=== PATIENT | male | born 1965 | race Caucasian/White ===

== ENCOUNTER 2025-05-15 16:36 | Inpatient (IN) | payer OTHER ==
[~2025-05-15] VITALS: Ht 182.9 cm; Wt 93.2 kg
--- NOTE | 2025-05-15 16:44 | ELECTROCARDIOGRAPH REPORT ---
[facility] Test Date: 2025-05-15 Test Time: 16:39:24 Pat Name: BENJA GUY Department: EMERGENCY ROOM Room: Gender: M Carpenter'S Helper: ANTON : 1965 Requested By: ARSH WALLACE Order Number: [id number] Reading MD: Dr. Jorge Barone Measurements Intervals [place] Rate: 111 P: 48 SC: 185 QRS: -38 QRSD: 103 T: 76 QT: 349 QTc: 474 Interpretive Statements Sinus tachycardia Probable left atrial enlargement Inferior infarct, old Electronically Signed On 05-15-2025 18:13:[address] Jorge Barone Please click the below link to view image of tracing.
[2025-05-15 16:56] LABS: MEAN PLATELET VOLUME 9.7 FL (7.4-10.4); RED CELL DISTRIBUTION WIDTH 16.8 % (11.5-14.5)
--- NOTE | 2025-05-15 17:03 | RADIOLOGY REPORT ---
CHEST RADIOGRAPH Indication: CP Technique: Single frontal view of the chest was obtained COMPARISON: None FINDINGS: Lines and Tubes: None Lungs: Pulmonary vasculature is mildly prominent. No focal consolidative opacity. Pleura: The right costophrenic sulcus is not entirely visualized. Suggestion of pleural thickening al armando the right lateral pleural margin. No pneumothorax. Cardiomediastinal contours: Cardiac silhouette is enlarged. Bones: Scattered osseous degenerative changes. IMPRESSION: Cardiomegaly with mild pulmonary vascular congestion. No focal consolidation. Possible small right pleural effusion.
[2025-05-15 17:18] LABS: CREATININE 1.73 MG/DL (0.60-1.10); PRO BRAIN NATRIURETIC PEPTIDE 13886 PG/ML (0-125); TOTAL CARBON DIOXIDE 22.5 MMOL/L (24-32); eCRCL 52 ML/MIN; eGFR 41 ML/MIN
[2025-05-15] MEDS: normal saline 1000ml 1,000 ML IV ONE (19:20)
--- NOTE | 2025-05-15 19:24 | Physician Documentation ---
History of Present Illness ~ Chief Complaint: Weakness Stated Complaint: SOB Time Seen by MD: 18:28 OK to notify your PCP?: Yes Source: patient, RN/MD, RN notes reviewed, old records Mode of Arrival: POV, Dropped Off Exam Limitations: no limitations HPI BED 15 This patient is a 59 y/o male who presents to ED with chief complaint of weakness. Patient states this has been going on for the past few weeks, and thinks he may be developing a pneumonia as he is also having shortness of breath and productive cough. He also endorses intermittent fever/chills. When asked, he mentions he has also noticed some new swelling in his feet. Patient denies any chest pain. Patient notes he has not seen a primary care doctor in 10 years. He does not take any medications for anything. States he quit smoking cigarettes a few months ago, but tried methamphetamine once 3 days ago, but has not done it again. Patient denies any other associated symptoms at this time. Patient denies any other alleviating or exacerbating factors. Medication Reconciliation Allergies: Coded Allergies: No Known Allergies (Unverified , 05/15/25) Scheduled Apixaban (Eliquis), 5 MG PO BID Atorvastatin Calcium (Atorvastatin Calcium), 40 MG PO DAILY Empagliflozin (Jardiance), 10 MG PO DAILY Lisinopril (Lisinopril), 10 MG PO DAILY Metoprolol Succinate (Metoprolol Succinate), 25 MG PO DAILY Miscellaneous Medications Home Med List (No Home Medications), (Reported) Past Medical History Past Medical History: Bronchitis Past Surgical History: tonsillectomy Smoking Status: Former smoker Alcohol Use: None Drug Use: methamphetamine Review of Systems All Other Systems at this time: Reviewed and Negative Constitutional: Reports: fever Respiratory: Reports: cough, shortness of breath Physical Exam Vital Signs: RN Vital Signs have been reviewed: Yes, Temperature: 98.4, Source: Temporal, Heart Rate: 107, Respiratory Rate: 17, BP: 155/126, Pulse Oximetry: 99, Weight: 93.180 Oxygen Flow Rate: 0 Physical Exam General: Ill appearing. No acute distress. Skin: [place], warm and dry with no rashes. HEENT: Head was normocephalic and atraumatic. Eyes - pupils equal, round, reactive to light and accommodation. Extraocular movements were intact. Conjunctivae were nonicteric. Ears - bilateral tympanic membranes were normal. The mouth and oropharynx were clear with moist mucous membranes. There were no pharyngeal exudates or erythema. Neck: Supple and nontender. There was no jugular venous distention, lymphadenopathy, thyromegaly or masses. Chest: Short shallow breath sounds. Otherwise lungs were clear to auscultation bilaterally without wheezes, rales or rhonchi. No accessory muscle use. No dullness to percussion. Heart: Rapid heart rate, regular rhythm. S1, S2. No murmurs. Palpation of the chest wall was normal. No rubs or thrills. Abdomen: Soft, nontender and nondistended. Positive bowel sounds. No guarding or rebound. No hepatosplenomegaly or palpable masses. Extremities: Trace edema to bilateral lower extremities. No cyanosis or clubbing. The patient moves all extremities. Pulses were equal and symmetric. Neurologic: Cranial nerves II-XII were intact. Sensation was intact to light touch throughout. Motor strength was 5/5 in all four extremities. Deep tendon reflexes were intact in both upper and lower extremities. Psychologic: The patient was oriented to person, place and time. The patient demonstrated appropriate judgement and insight. Progress Progress Note 192: Paged hospitalist 1940: Discussed case with hospitalist who agrees to evaluate patient for admission. Results/Orders Reviewed/noted all lab results: Yes Results/Orders Orders - JORGE BARONE MD Saline Lock (05/15/25 19:19) Page Hospitalist (05/15/25 19:29) Fill Out Med Reconciliation (05/15/25 19:29) Echocardiogram (05/16/25 00:03) Completed Orders - JORGE BARONE MD D-Dimer (05/15/25 19:19) Pt Inr (05/15/25 19:19) PTT (05/15/25 19:19) Aspirin 81mg Chew Tablet (Aspirin 81mg C (05/15/25 19:20) Normal Saline 1000ml (Sodium Chloride 10 (05/15/25 19:20) Drug Screen, Urine (05/15/25 19:19) Nitroglycerin 0.4mg/Hr Patch (Nitro-Dur (05/15/25 19:30) Heparin 25,000 Unit/250ml Bag (Heparin 2 (05/15/25 19:30) Carvedilol Tablet (Coreg Tablet) (05/15/25 19:30) Echocardiogram (05/16/25 00:03) Laboratory Tests Test 05/15/25 16:45 White Blood Count 10.0 Red Blood Count 5.49 Hemoglobin 16.7 Hematocrit 49.9 Mean Corpuscular Volume 90.8 Mean Corpuscular Hemoglobin 30.4 Mean Corpuscular Hemoglobin Concent 33.4 Red Cell Distribution Width 16.8 H Platelet Count 204 Mean Platelet Volume 9.7 Neutrophils (%) (Auto) 81.2 H Lymphocytes (%) (Auto) 9.4 L Monocytes (%) (Auto) 8.9 Eosinophils (%) (Auto) 0.1 Basophils (%) (Auto) 0.4 Neutrophils # (Auto) 8.1 H Lymphocytes # (Auto) 0.9 L Monocytes # (Auto) 0.9 Eosinophils # (Auto) 0.0 Basophils # (Auto) 0.0 CBC Comment Prothrombin Time 13.2 H INR International Normalized Ratio 1.3 Activated Partial Thromboplast Time 27 D-Dimer 9.15 H D-Dimer Comment Coagulation Comments Sodium Level 138 Potassium Level 4.1 Chloride Level 103 Carbon Dioxide Level 22.5 L Anion Gap 13 Blood Urea Nitrogen 30 H Creatinine 1.73 H Estimated GFR/1.73 m2 41 BUN/Creatinine Ratio 17.3 Glucose Level 136 H Hemoglobin A1c 5.9 Calcium Level 9.2 Magnesium Level 2.1 Total Bilirubin 2.3 H Direct Bilirubin 1.0 H Aspartate Amino Transf (AST/SGOT) 71 H Alanine Aminotransferase (ALT/SGPT) 468 H Alkaline Phosphatase 135 H Troponin I High Sensitivity 256 *H Pro-B-Type Natriuretic Peptide 25072 H Total Protein 7.1 Albumin 3.6 Globulin 3.5 Albumin/Globulin Ratio 1.0 L Chemistry Comments Ethyl Alcohol Level < 10 Re-Evaluation Re-Evaluation : Re-Evaluation: Improved Progress Patient was seen and examined. Patient was given reassurance. Patient was having complaints of chest pain. Patient was admitted for those complaints. Laboratory work was obtained. Tox screen was positive for methamphetamine. CBC shows no signs of anemia or elevated white count. Most signs of infection. Coagulation was obtained chemistry however had multiple abnormalities including troponin at 2:50 a.m. 6-102 38. [place] [address]. Also CO2 slightly low at 22.5 suggesting of metabolic acidosis. BUN is 30 creatinine is 1.73 also showing signs of dehydration and renal insufficiency. Bilirubin slightly elevated at 2.3 as well as AST 71 ALT of 468 consistent with some transaminitis. Patient was placed on a continuous monitor. Patient did receive aspirin as well as some fluids. Later echocardiogram was ordered by myself and to control the blood pressure patient received nitroglycerin and Coreg which would both help heart failure tachycardia and blood pressure. He was started on a heparin drip. Continuous environmental monitoring specialist shows sinus tachycardia heart rate 100s, abnormal, my interpretation. Pulse oximetry monitor interpretation shows normal oxygenation satting at 99% room air, normal, my interpretation. 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 Jorge Barone Measurements Intervals [place] Rate: 111 P: 48 HI: 185 QRS: -38 QRSD: 103 T: 76 QT: 349 QTc: 474 Interpretive Statements Sinus tachycardia Probable left atrial enlargement Inferior infarct, old Electronically Signed On 05-15-2025 18:13:[address] Jorge Barone Please click the below link to view image of tracing. EKG Date and Time:05/15/25 1639 Electronically Signed by: JORGE BARONE MD Date and Time: 05/15/25 181 NO PRIMARY CARE PROVIDER~ cc: ~ Chest X-Ray : Interpreted By: both Additional Comments [facility] [address], [place], [place] - [address] DIAGNOSTIC RADIOLOGY Patient: BENJA GUY Medical Record: [id number] [facility] : 1965, Age: 59 Sex: Male Location: ER Patient Status: [facility] ER Service Date/Time: 05/15/251648 Ordering Physician: ARSH WALLACE DO Exam: CHEST,SINGLE VIEW CHEST RADIOGRAPH Indication: CP Technique: Single frontal view of the chest was obtained COMPARISON: None FINDINGS: Lines and Tubes: None Lungs: Pulmonary vasculature is mildly prominent. No focal consolidative opacity. Pleura: The right costophrenic sulcus is not entirely visualized. Suggestion of pleural thickening along the right lateral pleural margin. No pneumothorax. Cardiomediastinal contours: Cardiac silhouette is enlarged. Bones: Scattered osseous degenerative changes. IMPRESSION: Cardiomegaly with mild pulmonary vascular congestion. No focal consolidation. Possible small right pleural effusion. Electronically Signed by:CONCETTA OCONNOR MD Date & Time: 05/15/251700 Dictated by: CONCETTA OCONNOR MD Dictation date and time: 05/15/251646 Primary Care Provider: NO PRIMARY CARE PROVIDER cc: ARSH WALLACE DO ~ EDMD BARONE REVIEWED IMAGING AND AGREES WITH ABOVE FINDINGS Heart Score: Heart Score Response (Comments) Value History Moderate Suspicious 1 EKG Repolarization Disturb 1 Age 45-64 1 Risk Factors 1 or 2 risk factors 1 Troponin >3 x's Normal limit 2 Total 6 Medical Decision Making Additional info obtained from: old records Differential Dx:Considerations: Include: dehydration, dysrhythmia, electrolyte imbalance, encephalopathy, hypotension, hypovolemia, myocardial infarction, pulmonary embolus, renal failure, respiratory failure, other Departure Time of Disposition: : Disposition: 09 ADMITTED INPATIENT Admitted to Inpatient Unit: yes, to hospitalist Admission Level of Care: PCU with Tele Impression: Primary Impression: NSTEMI (non-ST elevated myocardial infarction) Additional Impressions: Accelerated hypertension Acute diastolic heart failure Methamphetamine abuse Condition: Guarded Referrals: NO PRIMARY CARE PROVIDER (PCP) Prescriptions Lisinopril (LISINOPRIL) 10 Mg Tablet 10 MG PO DAILY for 30 Days, #30 TAB Prov: JUANPABLO CASAS, AMY 05/17/25 Apixaban (ELIQUIS) 5 Mg Tablet 5 MG PO BID for 30 Days, #60 TAB Prov: JUANPABLO CASAS, AMY 05/17/25 Empagliflozin (Jardiance) 10 Mg Tablet 10 MG PO DAILY for 30 Days, #30 TAB Prov: JUANPABLO CASAS, AMY 05/17/25 Metoprolol Succinate (Metoprolol Succinate) 25 Mg Tab.sr.24h 25 MG PO DAILY for 30 Days, #30 TAB.SR Prov: JUANPABLO CASAS, AMY 05/17/25 Atorvastatin Calcium (Atorvastatin Calcium) 20 Mg Tablet 40 MG PO DAILY for 30 Days, #30 TAB Prov: JUANPABLO CASAS, AMY 05/17/25 Education Educated: Patient Educated regarding: diagnosis Critical Care Note Total Time (mins): 30 Critical Care Note The very real possibility of a deterioration of this patient's condition required the highest level of my preparedness for sudden, emergent intervention. I provided critical care services, which included medication orders, frequent reevaluations of the patient's condition and response to treatment, ordering and reviewing test results, and discussing the case with various consultants. Excludes time spent performing separately billable procedures. The critical care time associated with the care of the patient was 30 minutes. Signature Scribe Signature: Scribed for Jorge Barone MD by Pratima Marrero. 05/15/25 19:34 Attestation: The note accurately reflects work and decisions made by me.Jorge Barone MD 05/15/25 19:24 JORGE BARONE MD May 15, 2025 19:24
[2025-05-15] MEDS ORDERED: heparin 10,000 units/1 ML INJ IV ONE (19:30)
[2025-05-15] MEDS ORDERED: magnesium sulf-water 4G/100mL 100 ML IV PRN (19:45)
[2025-05-15] MEDS ORDERED: potassium Cl 20 mEq SR tablet PO PRN ×2 (19:45)
[2025-05-15] MEDS ORDERED: magnesium Cl slow-release 64mg tablet PO PRN (19:45)
[2025-05-15] MEDS ORDERED: ondansetron/PF 4mg/2ml inj IV PRN (19:45)
[2025-05-15] MEDS ORDERED: HYDROcodone/acetaminophen 10/325mg tab PO PRN (19:45)
[2025-05-15] MEDS ORDERED: magnesium sulf-water 2g/50mL 50 ML IV PRN (19:45)
[2025-05-15] MEDS ORDERED: HYDROcodone/acetaminophen 5mg/325mg tablet PO PRN (19:45)
[2025-05-15] MEDS ORDERED: potassium Cl 40MEQ/1/2NS 520ml 520 ML IV PRN (19:45)
[2025-05-15] MEDS ORDERED: HYDROmorphone inj. 0.5 MG/0.5 ML DISP.SYRIN IV PRN (19:45)
[2025-05-15] MEDS ORDERED: magnesium hydroxide 30ml (MOM) UD suspension PO PRN (19:45)
[2025-05-15] MEDS ORDERED: mag hydrox/Alum hydrox/simeth 30ml oral suspension PO PRN (19:45)
[2025-05-15 19:52] LABS: APTT 27 SECONDS (22-32); INR 1.3 INR
[2025-05-15] MEDS: docusate sod 100mg capsule PO SCH (20:00)
[2025-05-15] MEDS: K and/or MAG REPLACEMENT MC SCH (20:00)
[2025-05-15] MEDS: furosemide 10 MG/1 ML 10ml inj IV SCH (20:12)
--- NOTE | 2025-05-15 20:21 | HISTORY AND PHYSICAL-Residence ---
History & Physical Providers to CC Resident Creating Document: DIAN MARTINEZ, AMY ~ History of Present Illness Reason for Admit\Complaint: CHEST PAIN History of Present Illness This is a 59-year-old male with no significant past medical history presents to the ER with a chief complaint of shortness of breathing, weakness, cough with brown sputum since the last two weeks. Patient states that he has been having difficulty breathing, PND and woke up this morning feeling short of breath and felt short of breath later with exertion. He also main states that he has had on and off fever, trace edema in the legs, dizziness. He denies any chest pain. He states that he quit smoking six months ago and used to smoke about one pack for the last 35 years. He also states that he has used methamphetamine on and off in his last use was one month ago, however he told the ER physician got his last use of meth was three days ago. He has a unreliable historian. He does not have a primary care physician in his not seen a doctor in the last 10 years. He lives alone and ambulates independently. He denies any history of chest pain in the past or history of CAD/strokes. Allergies: Coded Allergies: No Known Allergies (Unverified , 05/15/25) Home Medications Home Medications Active Past Medical History Past Medical History None Past Surgical History Surgical History Comment Tonsillectomy in childhood Past Social History Social History Comment Smokes about one pack a day for about 35 years, quit six months ago. Drinks alcohol occasionally twice a week, uses marijuana and methamphetamine as recreational drugs on and off Alcohol Use: None Drug Use: Methamphetamine ROS All Other Systems: Reviewed and Negative ROS Reviewed in full and negative except for the pertinent positives in HPI Constitutional: Reports: fever Respiratory: Reports: cough, shortness of breath Exam Vitals: Vital Signs Date Time Temp Pulse Resp B/P (MAP) Pulse Ox O2 Delivery O2 Flow Rate FiO2 05/15/25 18:29 17 05/15/25 16:40 98.4 107 99 0 General: General: well developed, well nourished. Awake , alert, and oriented x4, r estless and in mild acute distress . HEENT: Atraumatic, normocephalic, EOMI, anicteric sclera B; pink conjunctiva; PERRLA, normal oropharynx, moist oral and nasal mucosa. Tympanic membrane , nose , throat clear. Neck: Trachea midline. Supple, full range of motion, no JVD, bruit , hepatojugular reflex , lymphadenopathy or masses, or other lesions Cardiac: Regular rhythm, regular rate no murmurs, rubs, or gallops. Normal S1 and S2, no S3 noticed. PMI is normal. Respiratory: Equal breath sounds bilaterally, no tachypnea; lungs clear to auscultation bilaterally, mild wheezing , no rub or rales, or crackles. Chest wall is symmetric and without deformity. No signs of trauma. Chest wall is nontender. No signs of respiratory distress. Resonance is normal upon percussion bilaterally. Gastrointestinal: Abdomen symmetric, non-distended, soft, non-tender, normal bowel sounds x4 quadrant, normoactive, no hepatosplenomegaly , no masses , no bruit, no flank pain bilaterally. No voluntary guarding, rebound, or rigidity. No tenderness to percussion. No pulsatile masses. Equal femoral pulses. No Dumont's sign or McBurney point tenderness. Back; no CVA tenderness bilaterally, no deformities. Neck and back are without deformity as well. No tenderness noted on palpation of the spinous processes. Spinous processes are midline. Cervical, thoracic, and lumbar paraspinal muscles are not tender and are without spasm. : normal external genitalia, without lesions, swelling, masses or tenderness. Musculoskeletal: Extremities, normal range of motion, non-tender, muscle strength 5/5 x 4. Negative Homans signs bilaterally on lower extremity. Distal pulses full symmetrical, no clubbing, cyanosis , edema. Neurological: Speech is clear, alert, and oriented x 4. No motor or sensory deficit, deep tendon reflexes normal, cerebellar intact. Cranial nerves II-XII intact. Psych: Alert and or appropriate, normal affect. Vascular: Good distal pulses, which are equal x4; capillary refill less than 2 seconds. Skin: Warm, dry, no pallor, no rash or petechiae. Diagnostic Data Last Recorded Lab Results: 05/15/25 1645 05/15/25 1645 Diagnostic Data: Laboratory Tests Test 05/15/25 16:45 Prothrombin Time 13.2 SECONDS (9.0-12.0) H INR International Normalized Ratio 1.3 INR Activated Partial Thromboplast Time 27 SECONDS (22-32) D-Dimer 9.15 MG/L FEU (0-0.50) H D-Dimer Comment Coagulation Comments Advance Care Planning Advanced Care plannin - 30 Minutes (I spent a total of 17 minutes on reviewing various resuscitative measures/ ACP with the patient at the time of admission. The patient has decided on a full code status) Additional Plan Suspicious acute coronary syndrome Methamphetamine induced cardiomyopathy EKG shows Q-waves in lead II, III, AVF, sinus tachycardia with a heart rate of 111. First troponin is 256, 2nd one is 200, 3rd troponin is pending. However patient has no chest pain making NSTEMI unlikely. Patient was started on heparin drip by ER physician. Patient also received 324 mg of aspirin, nitroglycerin p.r.n. sublingual, carvedilol 3.125 mg one dose in the ER. Started on metoprolol 25 mg, atorvastatin 40 mg, follow up with lipid panel, A1c U tox pending. Follow up. Patient has on and off history of methamphetamine use. Lexiscan ordered in the a.m.. Consult Cardiology with Lexiscan results if abnormal. Suspected CHF, unknown [place] [address], chest x-ray shows Cardiomegaly with mild pulmonary vascular congestion. No focal consolidation. Possible small right pleural effusion. Started on IV Lasix 40 mg daily for suspected heart failure. Echo is pending. Strict I&Os. Fluid restriction of 1 L. Adjust GDMT based on EF. Shortness of breath Can not rule out PE Wells score is 1.5. However D-dimer is elevated at 9.15. Creatinine is 1.73. V/Q scan to rule out PE New onset Hypertension Patient denies history of hypertension. However blood pressure during earlier visits was also high. Starting on metoprolol 25 mg p.o. daily. Titrate dose as needed in the a.m. New onset RADHIKA versus CKD, unknown baseline Patient has BUN of 30, creatinine of 1.73. He denies any history of kidney disease but has not seen a PCP in 10 years. Follow up with renal ultrasound, urine lytes. Calculate FENA. Consult nephrology in the a.m. History of methamphetamine use Possible alcohol withdrawal Substance use navigator and health social work professor consult. Patient has a remote history of alcohol abuse. Follow up with ethanol levels and LFT. Coagulation profile shows slightly elevated PT INR of 13.2, 1.3. Code Status: Full code DVT Prophylaxis: Heparin drip Analgesia/Sedation: Archer, morphine p.r.n. Lines/Tubes: PIV Gi Prophylaxis:none Nutrition: Heart healthy diet, NPO after midnight PT: Yes Prognosis: Guarded Disposition: Admit to PCU with telemetry monitoring. Dian Ortiz MD Internal Medicine Resident PGY-1 pt discussed with the resident team his chest pain is improved he is appearing more comfortable Date of Service: May 15, 2025 Billing Provider: JANIS NIXON MD,DIAN ORTIZ, RES May 15, 2025 20:21 JANIS NIXON MD May 16, 2025 04:16
[2025-05-15] MEDS: heparin 10,000 units/1 ML INJ IV ONE (20:22)
[2025-05-15] MEDS: heparin 25,000 UNIT/250ml bag 250 ML IV PRN (20:26)
[2025-05-15] MEDS: MESSAGE TO NURSING IV ONE (20:28)
[2025-05-15] MEDS ORDERED: metoprolol tartrate 1mg/ml inj IV PRN (20:50)
[2025-05-15] MEDS ORDERED: aminophylline 250mg/10ml inj. IV PRN (20:50)
[2025-05-15] MEDS ORDERED: regadenoson 0.4mg/5ml syringe IV PRN (20:50)
[2025-05-15] MEDS ORDERED: NO HOME MEDS (20:51)
[2025-05-15 21:20] LABS: LEUKOCYTE ESTERASE ,URINE NEGATIVE (Neg); NITRITES, URINE NEGATIVE (Neg); OCCULT BLOOD,URINE NEGATIVE (Neg)
[2025-05-15 21:21] LABS: UA COLLECTION TYPE URINAL
[2025-05-15 21:23] LABS: OSMOLALITY UA 459.0 MOSM/K (50-1400)
[2025-05-15 21:28] LABS: SQUAMOUS EPITHELIAL CELL,UR NONE SEEN /LPF (FEW)
[2025-05-15 21:30] LABS: ETHANOL < 10 MG/DL (<10)
[2025-05-15 21:36] LABS: URINE AMPHETAMINE SCREEN POSITIVE (Neg); URINE BARBITUATE SCREEN NEGATIVE (Neg); URINE BENZODIAZEPINES SCREEN NEGATIVE (Neg); URINE CANNABINOID SCREEN POSITIVE (Neg); URINE COCAINE SCREEN NEGATIVE (Neg); URINE METHADONE SCREEN NEGATIVE (Neg); URINE OPIATE SCREEN NEGATIVE (Neg); URINE PHENCYCLIDINE SCREEN NEGATIVE (Neg)
[2025-05-15 21:40] VITALS: BP 133/97; PULSE 102; RESP 27; TEMP 95.1; O2SAT 98
[2025-05-15 21:47] LABS: UA EOSINOPHILS NO EOS /HPF
[2025-05-15 21:59] LABS: CREATININE,URINE RANDOM 82.0 MG/DL; TOTAL PROTEIN,URINE RANDOM 45.3 MG/DL
[2025-05-15 22:00] VITALS: BP 129/94; PULSE 93; RESP 26; TEMP 97.4; O2SAT 93
[2025-05-15 22:15] VITALS: RESP 25; O2SAT 95
[2025-05-16] VITALS (8 sets, daily range): BP systolic 131–142; BP diastolic 98–116; PULSE 60–93; RESP 16–29; TEMP 97–97.7; O2SAT 95–99
[2025-05-16 03:05] LABS: MEAN PLATELET VOLUME 9.9 FL (7.4-10.4); RED CELL DISTRIBUTION WIDTH 16.4 % (11.5-14.5)
[2025-05-16 03:23] LABS: CHOL/HDL RATIO 6.6 (0.00-4.99); CREATININE 1.66 MG/DL (0.60-1.10); LDL CHOLESTEROL 105 MG/DL (50-100); TOTAL CARBON DIOXIDE 21.7 MMOL/L (24-32); eCRCL 54 ML/MIN; eGFR 43 ML/MIN
[2025-05-16] MEDS: heparin 10,000 units/1 ML INJ IV PRN (03:49)
[2025-05-16] MEDS: MESSAGE TO NURSING IV ONE ×3 (03:51→19:00)
--- NOTE | 2025-05-16 07:34 | RADIOLOGY REPORT ---
CLINICAL INFORMATION: Acute kidney injury. TECHNIQUE: Grayscale sonographic imaging of the kidneys and bladder was performed, assisted by color Doppler technique. COMPARISON: None FINDINGS: The right kidney measures 8.6 cm in length. No hydronephrosis. Unremarkable cortical thi ckness and echogenicity. The left kidney measures 10.5 cm in length. No hydronephrosis. Unremarkable cortical thickness and echogenicity. Bladder is completely empty. The patient voided prior to the examination. IMPRESSION: 1. No hydronephrosis. Otherwise unremarkable sonographic appearance of both kidneys. 2. Bladder is empty and unable to be evaluated.
[2025-05-16] MEDS ORDERED: PERFLUTREN PROTEIN-A MICROSPHR (Optison) 0.22 MG/ML 3ML VIAL IV ONE (09:17)
[2025-05-16] MEDS: metoprolol succinate 25mg (24-HOUR) SR. Tablet PO SCH (09:49)
--- NOTE | 2025-05-16 10:32 | VASCULAR REPORT ---
Bilateral lower extremity venous duplex Clinical History: pain Comparison: None Technique: Duplex Doppler evaluation of the deep venous systems of both lower extremities from the common femora l veins to the popliteal veins including color Doppler and spectral/pulsed waveform analysis was perf ormed. Findings: RIGHT SIDE: The common femoral vein demonstrates appropriate compressibility and waveform variability. There is compressibility/patency of the great saphenous vein at the proximal thigh. The femoral vein demonstrates appropriate compressibility and waveform variability. The deep femoral vein demonstrates appropriate compressibility and waveform variability. The popliteal vein demonstrates appropriate compressibility and waveform variability. There is normal compressibility at the tibioperoneal trunk. LEFT SIDE: The common femoral vein demonstrates appropriate compressibility and waveform variability. There is compressibility/patency of the great saphenous vein at the proximal thigh. The femoral vein demonstrates appropriate compressibility and waveform variability. The deep femoral vein demonstrates appropriate compressibility and waveform variability. The popliteal vein demonstrates appropriate compressibility and waveform variability. There is normal compressibility at the tibioperoneal trunk. Impression: No right or left femoropopliteal venous thrombosis.
--- NOTE | 2025-05-16 13:24 | RADIOLOGY REPORT ---
NUCLEAR MEDICINE VENTILATION/PERFUSION LUNG SCAN. INDICATION: High D-dimer, rule out PE TECHNIQUE: Following intravenous demonstration of 6 millicuries of technetium 99m MAA, and inhalati on of 40 mCi of Tc 99m DTPA scintigrams were obtained in multiple projections of the lungs. FINDINGS: There is normal uptake of radionuclide on both the ventilation and perfusion portions of the examinat ion. No mismatched perfusion defects are demonstrated. Uptake is normally homogeneous. IMPRESSION: Low probability for PE.
--- NOTE | 2025-05-16 13:42 | PROGRESS NOTE- Residence ---
Progress Note - Resident Providers to CC Resident Creating Document: LISA JARVIS RES ~ Antibiotic Timeout Antibiotic Ordered?: No Subjective Patient seen and examined at bedside. Discussed echo findings and labs with him. Discuss about the risks and effects of methamphetamine on the heart, verbalized understanding. Objective Vital Signs Date Time Temp Pulse Resp B/P (MAP) Pulse Ox O2 Delivery O2 Flow Rate FiO2 05/16/25 11:30 97.6 93 22 137/116 (123) 99 Nasal Cannula 4.0 Result Diagram: 05/16/258 05/16/25 0228 General: Awake and Alert, no acute distress. 4 L oxygen nasal cannula HEENT: Conjunctiva pink, Sclera clear, Mucus Membranes moist. Neck: Supple without masses and tenderness. Resp: Unlabored. Equal breath sounds bilaterally. Heart: Regular rhythm, normal S1 and S2, no rub, murmur or gallop. Abdomen: Soft and non tender no organomegaly. Normal bowel sounds x4 quadrant normoactive. No guarding or rigidity. Extremities: Normal ROM, no swelling, nontender. No cyanosis,clubbing or edema. LANDING WORKER: No gross motor or sensory abnormalities. Skin: Warm and Dry. Coagulation Studies Laboratory Tests Test 05/15/25 16:45 05/16/25 09:53 Prothrombin Time 13.2 SECONDS (9.0-12.0) H INR International Normalized Ratio 1.3 INR Activated Partial Thromboplast Time 27 SECONDS (22-32) D-Dimer 9.15 MG/L FEU (0-0.50) H D-Dimer Comment APTT (Heparin Protocol) 73 SECONDS (45-60) H Coagulation Comments Plan Plan Type 2 NE, ruled out ACS Echo findings suspicious for a thrombus in the left ventricle EKG shows Q-waves in lead II, III, AVF, sinus tachycardia with a heart rate of 111. First troponin is 256, 2nd one is 200, 3rd troponin is pending. However patient has no chest pain making NSTEMI unlikely. Patient was started on heparin drip by ER physician. Patient also received 324 mg of aspirin, nitroglycerin p.r.n. sublingual, carvedilol 3.125 mg one dose in the ER. Started on metoprolol 25 mg, atorvastatin 40 mg, follow up with lipid panel, A1c U tox pending. Follow up. Patient has on and off history of methamphetamine use. Lexiscan ordered in the a.m.. 05/16/2025 Troponins flat Lizette low probability for PE. Echo shows severely reduced EF 10% with a suspicion for thrombus in the left ventricle Continue heparin drip for now Consulted Cardiology, appreciate recommendations Acute exacerbation of heart failure Severely reduced EF 10%, Elevated BNP, no signs of fluid overload Methamphetamine induced [place] [address], chest x-ray shows Cardiomegaly with mild pulmonary vascular congestion. No focal consolidation. Possible small right pleural effusion. Started on IV Lasix 40 mg daily for suspected heart failure. Echo is pending. Strict I&Os. Fluid restriction of 1 L. Adjust GDMT based on EF. 05/16/2025 GDMT metoprolol succinate 25 p.o. daily, Jardiance 10 p.o. daily, lisinopril 5 p.o. daily. Can add Aldactone on discharge or outpatient if he is able to tolerate the above medications. Monitor I's and os Low-sodium diet New onset Hypertension Patient denies history of hypertension. However blood pressure during earlier visits was also high. Starting on metoprolol 25 mg p.o. daily. 05/16/2025 Continue metoprolol and lisinopril Hold for SBP less than 100 and heart rate less than 60. 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 He denies any history of kidney disease but has not seen a PCP in 10 years. 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 Code Status: Full code DVT Prophylaxis: Heparin drip Analgesia/Sedation: [place], morphine p.r.n. Lines/Tubes: PIV Gi Prophylaxis:none Nutrition: Heart healthy diet, PT: Yes Prognosis: Guarded Disposition: Continue medical management. Date of Service: May 16, 2025 Billing Provider: JACQUELIN FULLER MD Common Visit Codes: [id number] INP/OBS CARE(HIGH) LISA JARVIS RES May 16, 2025 13:42 JACQUELIN FULLER MD May 16, 2025 17:01
[2025-05-16] MEDS: EMPAGLIFLOZIN 10 MG TABLET PO SCH (15:34)
--- NOTE | 2025-05-16 16:13 | CONSULTATION REPORT ---
History of Present Illness Providers to CC CC: CHIRAG FIGUEROA MD ~ Reason for Admit\Admit Dx: Cardiology consultation History of Present Illness This is a 59-year-old male who presented with increased shortness for breath over the past two months. Reports dyspnea on exertion. Denies orthopnea or PND. Reports history of methamphetamine use but reports he has last use four weeks ago. Quit smoking six months ago. Denies alcohol use. Found to have an LVEF of 10-15% with LV thrombus. Biventricular failure and four-chamber dilation. RVSP 54 mm of mercury and moderate MR. High sensitivity troponins 256, 200, 238, 178, 165, 170. Cardiology consultation requested with the on-call insurance sales agent, Dr. Figueroa service secondary to heart failure. Allergies: Coded Allergies: No Known Allergies (Unverified , 05/15/25) Home Medications Home Medications Active Reported No Home Medications (Home Med List) Each Past Medical History Medical History Comment No reported medical history Past Surgical History Surgical History Comment No reported surgical history Past Social History Social History Comment History of methamphetamine use reports last use was four weeks ago. Tox screen positive this admission. Quit smoking six months ago. Denies alcohol use. Physical Exam Last Vital Signs Recorded: RN Vital Signs have been reviewed: Yes, Temperature: 97.6, Source: Oral, Heart Rate: 79, Respiratory Rate: 22, BP: 140/116, Pulse Oximetry: 99, Weight: 93.180 Physical Exam General: Awake, alert, oriented. No apparent distress Neck: Supple. Normal range of motion. No JVD Respiratory: Lungs are clear to auscultation bilaterally. No respiratory distress. Chest: Normal shape and size. No accessory muscle use. Cardiovascular: Regular rate and rhythm. S1-S2. No murmur, gallop, rub. Gastrointestinal: Abdomen is soft. Nontender to palpation. Bowel sounds present. Extremities: No lower extremity edema, cyanosis or clubbing. Neurologic: Alert and oriented x4. Nonfocal Psychiatric: Normal mood and affect. Skin: Normal color. Warm and dry. Review of Systems ROS Review of systems negative except specifically documented in HPI. Results Echocardiogram Echocardiogram Preliminary echocardiogram demonstrates an LVEF of 10-15%. LV dilated. LVDd 5.8 cm. Contrast was used with echogenic structure suspicious for LV thrombus. RV moderately dilated with mildly reduced function. RVSP is 54 mm of mercury. Severe LA dilation. RA moderately dilated. Moderate MR. Other Other Med lung scan low probability for PE Diagram Lab Result Diagram: 05/16/2522705/16/25227 Assessment/Plan Additional Plan This is a 59-year-old male who presented with shortness for breath. 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 --continue Lasix. Strict intake and output measurements. Isn't particularly overloaded at this time. Can left fluid restriction. LV thrombus Currently on a heparin drip --recommend Eliquis 5 mg b.i.d. Acute kidney injury versus chronic kidney disease --monitor. --Mgt per hospitalist. NSTEMI Likely CT type 2 secondary to severe heart failure --no recommend medical management --no aspirin as he will be on oral anticoagulation --beta-lashawn as above --Cont atorva 40 mg daily. discharge planning: Patient does not have a primary care provider. Recommend discharge planning consultation to help him obtain one. He will to follow up with the primary care provider and referral to outpatient Cardiology. Discussed with Dr. Ayana Figueroa who is in agreement with the above. Supervising MD Supervising Physician: KAITLYN Cruz NP May 16, 2025 16:13
--- NOTE | 2025-05-16 18:32 | CARDIOLOGY REPORT ---
APPROVED REPORT EXAM: Comprehensive 2D, Doppler, and color-flow Echocardiogram with echo enhancement. Patient Location: 3024 A Blood Pressure: 136/98 mmHg Heart Rate: 97 bpm Rhythm: SINUS Indications ABNORMAL EKG ELEVATED PROBNP (99392) SHORTNESS OF BREATH METHAMPHETAMINE USE Positive Printer Operator: none Previous echo: none Echo Enhancing Agent Indication: Endocardial border delineation Agent/Amount Used: Optison 3.0 mL Comments: LOT: [id number] EXP: 08/31/2025 2D Dimensions RVDd 3.9 cm IVSd 1.2 (0.7-1.1cm) LVDd 5.8 cm PWd 1.2 (0.7-1.1cm) IVSs 1.2 (0.8-1.2cm) LVDs 5.5 (2.5-4.0cm) PWs 1.2 (0.8-1.2cm) LVOT Diameter 2.52 (1.8-2.4cm) LVEF(%) 12.0 (>50%) Ao Asc Diam.3.87 cm IVC 23.47 mmFS (%) 5.4 % SV 20.2 ml CO 9.3 L/min M-Mode Dimensions Left Atrium(MM) 5.35 (2.5-4.0cm) Aortic Root 3.65 (2.2-3.7cm) Aortic Cusp Exc 2.43 (1.5-2.0cm) MV EPSS 1.7 (<0.5cm) FS (%) 15 % ESV(Teich) 181.8 ml Aortic Valve AoV Peak Oswaldo. 74.9 cm/s AoV VTI 8.8 cm AO Peak GR. 2.2 mmHg AO Mean GR. 1 mmHg LVOT VTI 7.09 cm LVOT Peak Oswaldo. 47.7 cm/s VENTURA(VTI)/BSA 4.01 cm2/m2 VENTURA (VTI) 4.01 cm2 Mitral Valve MV E Velocity 105.3 cm/s MV Peak Gr. 5 mmHg MV PHT 48 ms MVA (PHT) 4.58 cm2 MV [id number] cm/s Tricuspid Valve TR P. Velocity 332 cm/s RAP ESTIMATE 10 mmHg TR Peak Gr. 44 mmHg RVSP 54 mmHg LEFT VENTRICLE Dilated LV size and severely reduced systolic function. Mild concentric hypertrophy. Echogenic struct ure visualized in the LV apex in multiple views. Optison enhancement agent used with lack of fill in corresponding area, suspicious for LV thrombus. LVEF is 10-15%. RIGHT VENTRICLE RV is moderately dialted in size with at least mildly reduced function. RVSP is estimated at 54 mmHg. ATRIA LA appears severely dilated. RA appears at least moderately dilated. AORTIC VALVE Trileaflet AV appears mildly sclerotic without stenosis. Trace insufficiency. MITRAL VALVE Mild MV annular calcification without stenosis. Moderate regurgitation. TRICUSPID VALVE TV appears structurally normal with mild regurgitation. PULMONIC VALVE Normal PV without stenosis, physiologic insufficiency. GREAT VESSELS Aortic root is normal in size. Ascending aorta is dilated. PERICARDIUM Normal pericardium. No effusion. Other Information Study Quality: Adequate
[2025-05-17] VITALS (12 sets, daily range): BP systolic 104–140; BP diastolic 82–98; PULSE 73–87; RESP 16–30; TEMP 96.4–98; O2SAT 93–99
[2025-05-17 01:40] LABS: MEAN PLATELET VOLUME 9.6 FL (7.4-10.4); RED CELL DISTRIBUTION WIDTH 17.0 % (11.5-14.5)
[2025-05-17 01:56] LABS: CREATININE 1.64 MG/DL (0.60-1.10); TOTAL CARBON DIOXIDE 23.6 MMOL/L (24-32); eCRCL 55 ML/MIN; eGFR 44 ML/MIN
[2025-05-17] MEDS: MESSAGE TO NURSING IV ONE ×2 (08:27→15:05)
[2025-05-17 09:11] LABS: HBSAG SCREEN Negative (Negative); HEP B CORE AB, IGM Negative (Negative); HEPATITIS C VIRUS ANTIBODY Non Reactive (Non Reactive)
[2025-05-17] MEDS: regadenoson 0.4mg/5ml syringe IV ONE (11:14)
--- NOTE | 2025-05-17 15:13 | RADIOLOGY REPORT ---
Procedure: NM NM ANA SCAN Exam Date: 05/17/2025 10:14 AM Reason for study/Clinical History: High troponins Comparison Study: None Myocardial Perfusion Study with SPECT Technique: The patient received an intravenous injection of 8.7 mCi of technetium-99m sestamibi whil e at rest. After a short delay, SPECT tomographic images of the heart were obtained. The patient th en went to the stress lab where they received an intravenous infusion of 0.[address] andard protocol. 34.8 mCi of technetium-99m sestamibi was injected intravenously immediately after the start of the lexiscan infusion. Gated SPECT tomographic images of the heart were acquired and pr ocessed. Findings: There is fixed inferior wall defect. Global hypokinesis. End diastolic volume: 240 mL End systolic volume: 170 mL The left ventricular ejection fraction is 29 %. (normal greater than 50%) Impression: Fixed inferior wall defect. Global hypokinesis. Markedly enlarged heart. The left ventricular ejection fraction is 29 %.
[2025-05-17] MEDS ORDERED: ATOR20TA66 PO (16:53)
[2025-05-17] MEDS ORDERED: METO-395 PO (16:53)
[2025-05-17] MEDS ORDERED: APIX5TAB3 PO (16:53)
[2025-05-17] MEDS ORDERED: EMPA10TA PO (16:53)
[2025-05-17] MEDS ORDERED: LISI10TA27 PO (16:56)
--- NOTE | 2025-05-17 18:28 | DISCHARGE SUMMARY-Residence ---
Discharge Summary Providers to CC Resident Creating Document: JUANPABLO CASASAMY ~ Discharge Summary Admission Diagnosis: SOB Hospital Course DATE OF ADMISSION: 05/15/2025 DATE OF DISCHARGE: 05/17/2025 Labs at the time of discharge Hemoglobin 16.0 WBC 9.6 Sodium 143 Potassium 4.0 Creatinine 1.66 BUN 31 Troponin trend-178, 165, 170 LDL 105 HDL 20 Urine toxicology positive for amphetamine and cannabinoids Lexiscan showed fixed inferior wall defect, global hypokinesia, ejection fraction 29% NM lung scan, low probability for PE Renal ultrasound 1. No hydronephrosis. Otherwise unremarkable sonographic appearance of both kidneys. 2. Bladder is empty and unable to be evaluated. Vascular ultrasound No right or left femoropopliteal venous thrombosis. Echocardiogram LEFT VENTRICLE Dilated LV size and severely reduced systolic function. Mild concentric hypertrophy. Echogenic structure visualized in the LV apex in multiple views. Optison enhancement agent used with lack of fill in corresponding area, suspicious for LV thrombus. LVEF is 10-15%. RIGHT VENTRICLE RV is moderately dialted in size with at least mildly reduced function. RVSP is estimated at 54 mmHg. ATRIA LA appears severely dilated. RA appears at least moderately dilated. AORTIC VALVE Trileaflet AV appears mildly sclerotic without stenosis. Trace insufficiency. MITRAL VALVE Mild MV annular calcification without stenosis. Moderate regurgitation. TRICUSPID VALVE TV appears structurally normal with mild regurgitation. PULMONIC VALVE Normal PV without stenosis, physiologic insufficiency. GREAT VESSELS Aortic root is normal in size. Ascending aorta is dilated. PERICARDIUM Normal pericardium. No effusion. 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 Figueroa Complications: None Condition on DC: Stable New Medications: Apixaban (Eliquis) 5 Mg Tablet 5 MG PO BID for 30 Days, #60 TAB Lisinopril (Lisinopril) 10 Mg Tablet 10 MG PO DAILY for 30 Days, #30 TAB Atorvastatin Calcium (Atorvastatin Calcium) 20 Mg Tablet 40 MG PO DAILY for 30 Days, #30 TAB Empagliflozin (Jardiance) 10 Mg Tablet 10 MG PO DAILY for 30 Days, #30 TAB Metoprolol Succinate (Metoprolol Succinate) 25 Mg Tab.sr.24h 25 MG PO DAILY for 30 Days, #30 TAB.SR Continued Medications: Home Med List (No Home Medications) Each Discharge Summary: This is a 59-year-old male with no significant past medical history presents to the ER with a chief complaint of shortness of breathing, weakness, cough with brown sputum since the last two weeks. He also main states that he has had on and off fever, trace edema in the legs, dizziness. He denies any chest pain. He states that he quit smoking six months ago and used to smoke about one pack for the last 35 years. He also states that he has used methamphetamine on and off in his last use was one month ago, however he told the ER physician got his last use of meth was three days ago. Patient was admitted for management of methamphetamine induced cardiomyopathy and acute CHF with reduced ejection fraction. Troponins downtrending, Lexiscan was done which showed fixed defect in the inferior wall, global hypokinesia. Echo was done which showed an ejection fraction of 10% with a suspicion of thrombus in the left ventricle. Patient was started on heparin drip, discontinued at the time of discharge and continued on Eliquis 5 mg b.i.d.. Started on GDM T medications metoprolol succinate 25 mg daily, Jardiance 10 mg, lisinopril 5 mg. Did not start Aldactone in view of RADHIKA. Consulted social worker school for methamphetamine abuse. Patient also has a RADHIKA secondary to vasomotor nephropathy, probably has an underlying CKD, baseline creatinine is not known. Patient has been counseled regarding the adverse effects of using methamphetamine and has been advised to stop using it. Patient is stable enough to be discharged home. At the time of discharge he had the following physical examination findings General: Awake and Alert, no acute distress. 4 L oxygen nasal cannula HEENT: Conjunctiva pink, Sclera clear, Mucus Membranes moist. Neck: Supple without masses and tenderness. Resp: Unlabored. Equal breath sounds bilaterally. Heart: Regular rhythm, normal S1 and S2, no rub, murmur or gallop. Abdomen: Soft and non tender no organomegaly. Normal bowel sounds x4 quadrant normoactive. No guarding or rigidity. Extremities: Normal ROM, no swelling, nontender. No cyanosis,clubbing or edema. FABRIC STRETCHER: No gross motor or sensory abnormalities. Follow up with PCP in two weeks Follow up with field service consultant, Dr. Figueroa in two weeks Continue to take atorvastatin 40 mg daily Continue to take apixaban 5 mg b.i.d. daily Continue to take lisinopril 10 mg daily, Jardiance 10 mg daily, metoprolol succi hilario 25 mg daily. Please stop using methamphetamine. Call 911 or return to ER in case of chest pain, palpitations, shortness of breadth. Skin: Warm and Dry. *Problems/Diagnosis: (1) Methamphetamine abuse (2) Systolic heart failure (3) NSTEMI (non-ST elevated myocardial infarction) Status: Acute Total Time Spent on D/C: Up to 30 Minutes Date of Service: May 17, 2025 Billing Provider: JACQUELIN FULLER MD Common Visit Codes: 89898-QYK/OBS DISCH DAY >30min JUANPABLO CASAS, RES May 17, 2025 18:22 JACQUELIN FULLER MD May 18, 2025 17:43
== END 2025-05-17 19:00 | disposition home or self-care (01) | DRG 280 ==
LOC: ER 16:37 → ED HOLD 19:47 → EDBEDREQ 20:28 → PCU 3S 21:27
PROVIDERS: ADMIT Internal Medicine; ATTEND Internal Medicine
PROC: 4A02XM4 Measurement of Cardiac Total Activity, External Approach (ICD-10-PCS; principal; 2025-05-16)
PROC: 3E033HZ Introduction of Radioactive Substance into Peripheral Vein, Percutaneous Approach (ICD-10-PCS; 2025-05-16)
PROC: CB121ZZ Planar Nuclear Medicine Imaging of Lungs and Bronchi using Technetium 99m (Tc-99m) (ICD-10-PCS; 2025-05-17)
DX: I13.0 Hypertensive heart and chronic kidney disease with heart failure and stage 1 through stage 4 chronic kidney disease, or unspecified chronic kidney disease (principal); I50.43 Acute on chronic combined systolic (congestive) and diastolic (congestive) heart failure; I21.A1 Myocardial infarction type 2; N17.0 Acute kidney failure with tubular necrosis; N18.30 Chronic kidney disease, stage 3 unspecified; I42.7 Cardiomyopathy due to drug and external agent; F15.90 Other stimulant use, unspecified, uncomplicated; Z87.891 Personal history of nicotine dependence
CPT/HCPCS: 36415; 71045; 76770; 78452; 78582; 80048; 80053; 80061; 80076; 80305; 80320; 81001; 82570; 83036; 83735; 83880; 83935; 84133; 84156; 84300; 84484; 85025; 85379; 85610; 85730; 86705; 86803; 87081; 87207; 87340; 87522; 93005; 93017; 93306; 93970; 99291; A9500; A9539; A9540; G0378; J1644; J1938; J2785; J7030; Q9956